=== PATIENT | male | born 1975 | race Caucasian/White ===

== ENCOUNTER 2021-04-21 08:37 | Day surgery (SDC) | payer OTHER, SELFPAY ==
[~2021-04-21] VITALS: Ht 175.3 cm; Wt 72.6 kg
[2021-04-21] MEDS ORDERED: MIDAZOLAM HCL 5 MG/5 ML VIAL ONE (10:05)
[2021-04-21] MEDS ORDERED: MEPERIDINE 100 MG INJ. 100 MG/ML VIAL ONE (10:05)
[2021-04-21] MEDS ORDERED: GLYCOPYRROLATE 0.2 MG/ML VIAL ONE (10:06)
[2021-04-21 13:13] VITALS: BP_SYST 127
== END 2021-04-21 11:30 | disposition home or self-care (01) ==
LOC: SDS 08:37 → SMU 08:42 → EDSEX 10:00 → SDS 11:30
PROVIDERS: ATTEND Colon & Rectal Surgery
DX: Z12.11 Encounter for screening for malignant neoplasm of colon (principal); K62.5 Hemorrhage of anus and rectum; K64.4 Residual hemorrhoidal skin tags; K64.8 Other hemorrhoids; G43.909 Migraine, unspecified, not intractable, without status migrainosus; Z20.822 Contact with and (suspected) exposure to COVID-19; Z79.899 Other long term (current) drug therapy
CPT/HCPCS: 45378; G0378; J2175; J2250; U0003; J3490

== ENCOUNTER 2021-05-12 07:47 | Day surgery (SDC) | payer OTHER, SELFPAY ==
[~2021-05-12] VITALS: Ht 175.3 cm; Wt 72.6 kg
[~2021-05-12 07:47] MED LIST: CEFAZOLIN SOD 1 GM in D5W 50 ML IV ONE
[2021-05-12] MEDS ORDERED: LR 1,000 ML IV.SOLN IV ONE (09:12)
[2021-05-12] MEDS ORDERED: fentaNYL CITRATE/PF 100 MCG/2 ML AMP IVP ONE (09:12)
[2021-05-12] MEDS ORDERED: DEXAMETHASONE SOD PHOSPHATE 4 MG/ML VIAL IVP ONE (09:12)
[2021-05-12] MEDS ORDERED: NS IRRIG SOLN 1000 ML IR ONE (09:12)
[2021-05-12] MEDS ORDERED: LIDOCAINE 2%, 20 ML MDV INJ ONE (09:12)
[2021-05-12] MEDS ORDERED: PROPOFOL 200MG/ 20ML VIAL (DIPRIVAN) IV ONE (09:12)
[2021-05-12] MEDS ORDERED: ONDANSETRON HCL 4 MG/2 ML VIAL IVP ONE (09:12)
[2021-05-12] MEDS ORDERED: MIDAZOLAM HCL 5 MG/5 ML VIAL IVP ONE (09:12)
[2021-05-12] MEDS ORDERED: SEVOFLURANE 15 MIN GAS INH ONE (09:12)
[2021-05-12] MEDS ORDERED: BUPIVACAINE /EPINEPHRINE/PF 0.25% 30 ML VIAL INJ ONE (09:12)
[2021-05-12] MEDS ORDERED: KETOROLAC TROMETHAMINE 30 MG VIAL IVP ONE (09:12)
[2021-05-12] MEDS ORDERED: BUPIVACAINE LIPOSOME/PF 266 MG/20 ML VIAL INFIL ONE (09:14)
[2021-05-12] MEDS ORDERED: LR 1,000 ML IV SCH (10:00)
[2021-05-12] MEDS ORDERED: MEPERIDINE HCL/PF 25 MG/ML DISP.SYRIN IVP PRN (10:00)
[2021-05-12] MEDS ORDERED: MIDAZOLAM HCL 2 MG/2 ML VIAL (VERSED) IVP PRN (10:00)
[2021-05-12] MEDS ORDERED: METOCLOPRAMIDE HCL 10 MG/2 ML VIAL IVP PRN (10:00)
[2021-05-12] MEDS ORDERED: HYDROmorphone 1 MG/ML INJ. CARTRIDGE IVP PRN ×3 (10:00→10:30)
[2021-05-12] MEDS ORDERED: HYDROcodone/ACETAMIN 5-325 MG TAB (NORCO/ VICODIN) PO PRN ×2 (10:30)
[2021-05-12] MEDS ORDERED: D5/0.45 NS 1,000 ML IV SCH (10:30)
[2021-05-12] MEDS ORDERED: MEPERIDINE HCL/PF 25 MG/ML DISP.SYRIN ONE (10:46)
[2021-05-12 12:40] VITALS: BP_SYST 122
== END 2021-05-12 12:30 | disposition home or self-care (01) ==
LOC: SDS 07:47 → SMU 07:48 → SDS 12:30
PROVIDERS: ATTEND Colon & Rectal Surgery
DX: K64.4 Residual hemorrhoidal skin tags (principal); K64.2 Third degree hemorrhoids; K62.89 Other specified diseases of anus and rectum; K21.9 Gastro-esophageal reflux disease without esophagitis; Z79.899 Other long term (current) drug therapy; Z20.822 Contact with and (suspected) exposure to COVID-19
CPT/HCPCS: 45541; 46260; 82962; 88304; C9290; J0690; J1100; J1885; J2001; J2175; J2250; J2405; J2704; J3010; J3490; J7060; J7120; U0003